=== PATIENT | female | born 1965 | race Hispanic/Latino ===

== ENCOUNTER 2016-12-10 01:12 | Emergency (ER) | payer OTHER ==
[~2016-12-10] VITALS: Ht 160 cm; Wt 84.1 kg
[2016-12-10 01:15] VITALS: BP 124/89; PULSE 79; RESP 14; O2SAT 99
--- NOTE | 2016-12-10 02:09 | ED.REPORT ---
HPI-Extremity Problem Upper Date of Service Dec 10, 2016 ED Provider: Niall Mattson MD Patient is a 51 year old female who presents to the ED with right shoulder pain that began on 11/14/2016, worse in severity tonight. Patient typically only works for 8 hours per today, but yesterday she had to work 9 hours. Her pain has been worse in severity since that time. She states that the pain radiates to her right elbow and wrist. Her pain is mild on arrival to the ED, but she states it is worse when she lays down. Her pain often prevents her from sleeping. 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 Her job mostly involves repetitive motion and applying pressure. Patient denies numbness or weakness in her fingers. She wishes to file an L&I claim. Patient also has an appointment with the [facility]' s physician on December 14. Patient reports previously injuring her left wrist at work and she therefore mostly uses her right arm at work. She reports doing the same job as always, but only using her right arm She denies any recent trauma or injury to her shoulder. She has been taking Advil and Tylenol at home for her pain. Patient is [place]-Speaking and this encounter was assisted by the use of an chemical handler. Nursing Notes Stated Complaint: R SHOULDER,ARM PAIN Chief Complaint: Extremity Trauma Nursing Notes Reviewed: Yes Allergies: Coded Allergies: papaya (Unverified Allergy, Unknown, UNKNOWN, 12/10/16) Scheduled PRN Ibuprofen (Ibuprofen) 600 Mg Tablet 600 MG PO TID PRN PRN For Pain General Time Seen by MD: 02:04 Chief Complaint Shoulder injury right Hx Obtained From: Patient, Agricultural Equipment Operator Arrived By: Walk-in Onset Occurred: More than a week ago... (4 weeks) Symptom Duration: Since onset Location: : Shoulder right Quality: Painful Severity: Current: Moderate Severity: Maximum: Moderate Recent Healthcare: No recent doctor visit, No recent hospitalization Similar Sx Previous: No Past Medical History Past Medical History depression anxiety Past Surgical History Reports: Cholecystectomy Smoking History Unknown if Ever Smoker Social History Other Social History: Local resident Occupation Works at [employer] Ambulatory Status Independent Review of Systems Musculoskeletal: Reports: Extremity pain, Joint pain Neurologic: Denies: Numbness, Weakness Complete sys rev & neg: except as marked. Physical Exam Initial Vital Signs Vital Signs (First) Date Time Temp Pulse Resp B/P Pulse Ox O2 Delivery O2 Flow Rate FiO2 12/10/16 01:15 36.7 79 14 124/89 99 Room Air Initial VS: Reviewed, Vital signs normal Head / Eyes: Atraumatic, Normocephalic, PERRL ENT: Conjunctiva normal, No scleral icterus Lower Extremities: Vascular intact, Neuro intact Skin: Warm, Dry, No cyanosis Neurologic: Alert, Oriented, Nonfocal Psychiatric: Mood/affect normal, Behavior normal, Normal thought content General/Constitutional: Awake, Alert, No acute distress Neck: Supple, Full range of motion, No midline vertebral tend Respiratory / Chest: No respiratory distress, No stridor Cardiovascular: Heart rate NL, Cap refill not delayed, Peripheral circulation NL Upper Extremity / MS: Full range of motion, Neurologic intact, Vascular intact Right Shoulder: Positive: Tenderness present... (over the right biceps and triceps tendon, increased pain with flexion of shoulder) Wrist / Hand: Neurologic intact, Vascular intact Right Wrist: Negative: Carpal tunnel signs... Re-Eval/Medical Decision Med Decision/Clinical Course Uncomplicated right bicipital tendinitis, a repetitive motion tendinitis from her work at [employer]. Source of Hx: Old records Re-Evaluation/Progress : Time of Eval: 02:18 Patient Status: Condition improved Re-Evaluation/Progress Note: Patient's symptoms are consistent with an overuse injury. She should continue taking her anti-inflammatory medications and rest her arm. Will write a note to restrict her work hours. Patient understands and agrees with the plan to be discharged home. Discharge instructions and follow-up discussed. All questions were addressed. Return to the ED warnings given. Counseled Regarding: Diagnosis, Need for follow-up, When/why to return to ED Discharge & Departure Impression: Primary Impression: Overuse injury Additional Impression: Bicipital tendinitis, right shoulder Disposition: Home Discharge Condition All VS Reviewed: Yes Condition: Stable Patient Instructions: How to Use a Sling (GEN), Rotator Cuff Tendinitis (ED) Additional Instructions: You have a repetitive use injury of the right shoulder, and inflammation of the biceps tendon. Rest this with a sling. Avoid repetitive use, especially long hours and no breaks. See your regular doctor on Sunday or Sunday if you feel unable to return to work. Tylenol up to 1000 mg 3 times a day as needed for pain. Ibuprofen up to 600 mg 3 times a day as needed for pain. You can use these together or you can alternate them. Referrals: Lola Ghosh MD (PCP) Scribe Attestation Portions of this note were transcribed by Marilyn Naylor. I, Dr. Mattson, personally performed the history, physical exam and medical decision-making; I reviewed and confirmed the accuracy of the information in the transcribed note. Signed by: Marlee Cuba, 12/10/2016 [id number] copies to: Lola Ghosh MD, Howard L MD Dec 10, 2016 02:09 Marilyn Naylor Dec 10, 2016 02:11
[2016-12-10] MEDS ORDERED: IBUP-1827 PO (02:35)
[2016-12-10 03:41] VITALS: BP 122/88; PULSE 72; RESP 16; O2SAT 99
== END 2016-12-10 03:40 | disposition home or self-care (01) ==
LOC: SED 01:12
DX: M75.21 Bicipital tendinitis, right shoulder (principal); X50.3XXA Overexertion from repetitive movements, initial encounter; Y93.89 Activity, other specified; Y92.69 Other specified industrial and construction area as the place of occurrence of the external cause; Y99.0 Civilian activity done for income or pay

== ENCOUNTER 2016-12-29 23:17 | Emergency (ER) | payer OTHER ==
[~2016-12-29 23:17] MED LIST: IBUP-1827 PO
[2016-12-29 23:24] VITALS: BP 126/80; PULSE 83; RESP 16; O2SAT 100
--- NOTE | 2016-12-30 00:07 | ED.REPORT ---
HPI-Extremity Problem Upper Date of Service Dec 30, 2016 ED Provider: The patient is an otherwise healthy 51 year old female who presents to the ED complaining of right wrist pain for the last month which has progressively worsening over the last three days. She denies falls or other known trauma. Her pain is exacerbated by movement and extends through her forearm to her elbow. 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 She is right handed. She has taken ibuprofen and Tylenol for her pain. She denies fever, chills, loss of sensation in her hand, or any other symptoms at this time. Nursing Notes Stated Complaint: RT WRIST PAIN Chief Complaint: Extremity Trauma Nursing Notes Reviewed: Yes Allergies: Coded Allergies: papaya (Unverified Allergy, Unknown, UNKNOWN, 12/10/16) Scheduled PRN Ibuprofen (Ibuprofen) 600 Mg Tablet 600 MG PO TID PRN PRN For Pain General Time Seen by MD: 00:04 Chief Complaint Wrist injury right Hx Obtained From: Patient Arrived By: Walk-in Onset Occurred: 3 days ago Symptom Duration: Since onset Location: : Wrist right Quality: Painful Severity: Current: Mild Severity: Maximum: Moderate Recent Healthcare: No recent doctor visit, No recent hospitalization Similar Sx Previous: No Past Medical History Past Medical History depression anxiety Past Surgical History Reports: Cholecystectomy Smoking History Unknown if Ever Smoker Social History Alcohol Use: Denies alcohol use Drug Use: Denies drug use Other Social History: Local resident Occupation Works at [employer] Ambulatory Status Independent Review of Systems Constitutional: Denies: Chills, Fever Musculoskeletal: Reports: Joint pain (right wrist), Denies: Back pain, Lumbar pain, Neck pain Neurologic: Denies: Change LOC, Headache, Numbness, Weakness Complete sys rev & neg: except as marked. Physical Exam Initial Vital Signs Vital Signs (First) Date Time Temp Pulse Resp B/P Pulse Ox O2 Delivery O2 Flow Rate FiO2 12/29/16 23:24 36.2 83 16 126/80 100 Room Air Initial VS: Reviewed General/Constitutional: Well-developed, Well-nourished Head / Eyes: Atraumatic, Normocephalic, PERRL ENT: Mucous membranes moist, Conjunctiva normal, No scleral icterus Neck: Supple, Non-tender, Full range of motion Respiratory: Breath sounds normal, Clear to auscultation, No respiratory distress Cardiovascular: Regular rate & rhythm, Heart sounds normal, Intact distal pulses Abdomen / GI: Soft, Non-tender, No guarding, No rebound, No distention Back: No CVA tenderness Skin: Warm, Dry, No cyanosis Neurologic: Alert, Oriented, Nonfocal Psychiatric: Mood/affect normal, Behavior normal, Normal thought content Wrist/hand: Right wrist atraumatic. Radial/ulnar nerves intact, intact 2+ distal pulses. No sausage fingers, no palpable tenderness along flexor/extensor tendons. No obvious deformity. Left wrist asymptomatic. Re-Eval/Medical Decision Med Decision/Clinical Course 51-year-old female [id number] here with right hand pain which has gotten progressively worse over the last month without any trauma. Differential diagnosis includes but is not limited to carpal tunnel syndrome versus repetitive stress syndrome versus arthritis versus fracture. Given patient has had no history of trauma, at this time I do not feel she requires imaging. She was given Tylenol in the emergency department and advised to follow-up with her primary care physician. She was given very strict return precautions and is amenable to discharge at this time Source of Hx: Old records Re-Evaluation/Progress : Time of Eval: 01:14 Re-Evaluation/Progress Note: Rechecked the patient. Discussed diagnosis and plan for discahrge. The patient understands and agrees to the plan. Follow-up instructions and RTER warnings given. All questions addressed. Counseled Regarding: Diagnosis, Need for follow-up, When/why to return to ED Discharge & Departure Impression: Primary Impression: Right wrist pain Disposition: Home Discharge Condition All VS Reviewed: Yes Condition: Stable Patient Instructions: Wrist Injury (ED) Additional Instructions: Your emergency department visit included a consultation and physical examination. Your physical examination was reassuring, I do not believe your symptoms to be from any immediately life-threatening or serious illness. The most likely cause for this is arthritis. Take Tylenol, 1000mg every 6 hours as needed for your pain. Follow-up with your primary care physician in the coming days if your pain does not resolve. Return to the emergency room if you develop any new/concerning symptoms. Thank you for coming in today, I hope you feel better soon. Bejarano visita al departamento de emergencias incluy tish consulta y examen fsico. Bejarano examen fsico fue tranquilizador, no creo que mal sntomas citlalli de cualquier enfermedad que amenace la ronald inmediatamente o que sea grave. La causa ms probable de esto es la artritis. Stacey Tylenol, 1000mg cada 6 horas segn sea necesario para bejarano dolor. Oswaldo un seguimiento con bejarano mdico de atencin primaria en los prximos rodriguez si bejarano dolor no se resuelve. Vuelva a la trace de emergencias si desarrolla sntomas nuevos o relacionados. Joel por venir hoy, espero que se sienta mejor pronto. Referrals: Lola Ghosh MD (PCP) Scribe Attestation Portions of this note were transcribed by Deo Bennett. I, Dr. Nunez, personally performed the history, physical exam, and medical decision-making; I reviewed and confirmed the accuracy of the information in the transcribed note. Signed by: Marlee Eldridge, 12/30/16 01:14. copies to: Lola Ghosh MD, Rebecca A MD Dec 30, 2016 00:06 DEO BENNETT Dec 30, 2016 01:15
[2016-12-30 01:32] VITALS: BP 133/92; PULSE 67; RESP 16; O2SAT 99
== END 2016-12-30 01:30 | disposition home or self-care (01) ==
LOC: SED 23:17
DX: M25.531 Pain in right wrist (principal)